=== PATIENT | female | born 1995 | race African-American/Black ===

== ENCOUNTER 2016-12-19 15:12 | Emergency (ER) | payer OTHER ==
[2016-12-19 15:20] VITALS: BP 140/81; PULSE 69; TEMP 98.2; BMI 44.6
--- NOTE | 2016-12-19 15:22 | PDOC ---
Rapid Medical Evaluation Chief Complaint: Foreign Body (FB) Time Seen by Provider: 12/19/16 15:19 Medical Evaluation: Allergies Allergy/AdvReac Type Severity Reaction Status Date / Time No Known Allergies Allergy Verified 12/19/16 15:17 Vital Signs Temp Pulse Resp BP Pulse Ox 98.2 F 69 19 140/81 97 12/19/16 15:17 12/19/16 15:17 12/19/16 15:17 12/19/16 15:17 12/19/16 15:17 12/19/16 15:21 I have performed a brief in-person evaluation of this patient. The patient presents with a chief complaint of: piece of glass in left foot Pertinent physical exam findings: no palpable mass I have ordered the following:foot xray The patient will proceed to the ED for further evaluation.
[2016-12-19] MEDS ORDERED: DIPHTH,PERTUSS(ACELL),TET 0.5 ML DISP.SYRIN IM ONE (15:56)
[2016-12-19] MEDS ORDERED: IBUPROFEN 600 MG TABLET (FP) PO ONE (15:56)
[2016-12-19] MEDS ORDERED: IBUPROFEN 400 MG TABLET (FP) PO ONE (15:58)
--- NOTE | 2016-12-19 16:04 | PDOC ---
History of Present Illness - General Chief Complaint: Foreign Body (FB) Stated Complaint: stepped on glass Time Seen by Provider: 12/19/16 15:19 History Source: Patient Exam Limitations: No Limitations - History of Present Illness Initial Comments: 12/19/16 16:26 21-year-old female presents to the ED for evaluation of foreign body into her left foot. Patient states was walking barefoot in her house when she felt something go into her foot. Patient states her boyfriend use a pair of tweezers and was able to move a sliver of glass. Patient states although the pain has subsided she is concerned that there might be glass in her foot. Patient unsure of her last tetanus and denies history of immunosuppression. Patient states unable to ambulate without difficulty. Timing/Duration: 1 hour Severity: mild Associated Symptoms: reports: denies symptoms Past History - Past Medical History Allergies/Adverse Reactions: Allergies Allergy/AdvReac Type Severity Reaction Status Date / Time No Known Allergies Allergy Verified 12/19/16 15:17 Home Medications: Ambulatory Orders Diphenhydramine [Benadryl -] 100 mg PO DAILY 07/10/15 Ibuprofen 400 mg PO QID PRN #30 tablet 07/11/15 Pseudoephedrine HCl [Sudafed] 30 mg NR TID PRN #20 tablet 07/11/15 Sodium Chloride [Saline Nasal [place]] 44 ml NS QID PRN #1 spray 07/11/15 Psychiatric Problems: Yes (ANXIETY,DEPRESSION) Suicide Attempt (Hx): Yes - Reproductive History Para: 0 - Immunization History Immunization Up to Date: Yes - Psycho/Social/Smoking Cessation Hx Anxiety: Yes Suicidal Ideation: No Smoking Status: No Smoking History: Never smoked Number of Cigarettes Smoked Daily: 2 Hx Alcohol Use: Yes ("occaison") Drug/Substance Use Hx: No Substance Use Type: Marijuana Hx Substance Use Treatment: No Patient Lives Alone: No Lives with/in: parents Review of Systems - Review of Systems Able to Perform ROS?: Yes Musculoskeletal: No: Symptoms Reported Integumentary: Yes: Other Neurological: No: Symptoms reported *Physical Exam - Vital Signs Last Vital Signs Temp Pulse Resp BP Pulse Ox 98.2 F 69 19 140/81 97 12/19/16 15:17 12/19/16 15:17 12/19/16 15:17 12/19/16 15:17 12/19/16 15:17 - Physical Exam General Appearance: Yes: Nourished, Appropriately Dressed. No: Apparent Distress Integumentary: positive: Other (Patient with small puncture wound to the mid foot of the left lower extremity. No palpable mass no point tenderness to area. Surrounding skin intact.) Neurologic: positive: Motor Strength 5/5 (ambulatory ) Medical Decision Making - Medical Decision Making 12/19/16 16:33 Patient states stepped on a piece of glass and instructed piece of glass is still in there so came to the ER for further evaluation. Patient states her boyfriend did take out a piece of glass using tweezers. Patient exam had no palpable mass or foreign body. Patient discharged home with supportive care instructions. *DC/Admit/Observation/Transfer Diagnosis at time of Disposition: Foreign body in foot, left Qualifiers: Encounter type: initial encounter Qualified Code(s): S90.852A - Superficial foreign body, left foot, initial encounter - Discharge Dispostion Disposition: HOME Condition at time of disposition: Good - Referrals Referrals: Bev Garcia [Primary Care Provider] - - Patient Instructions Printed Discharge Instructions: DI for Removal of Foreign Body From Skin Additional Instructions: I believe that you had removed the full piece of glass based on my exam but I do recommend that you do warm soaks with Epsom salts 3 times a day for 15 minutes. If symptoms continue over the next 5 days please return to the ED as this may indicate that there is still glass in her foot.
== END 2016-12-19 16:31 | disposition home or self-care (01) ==
LOC: JERFT 15:12
PROC: 3E0234Z Introduction of Serum, Toxoid and Vaccine into Muscle, Percutaneous Approach (ICD-10-PCS; principal; 2016-12-19)
DX: S91.342A Puncture wound with foreign body, left foot, initial encounter (principal); W25.XXXA Contact with sharp glass, initial encounter; Y93.01 Activity, walking, marching and hiking; Y92.038 Other place in apartment as the place of occurrence of the external cause
CPT/HCPCS: 84703; 90715; 99281-25

== ENCOUNTER 2017-01-03 16:11 | Emergency (ER) | payer OTHER ==
[2017-01-03 16:21] VITALS: BP 112/67; PULSE 77; TEMP 98.2; BMI 47.2
[2017-01-03] MEDS ORDERED: IBUPROFEN 600 MG TABLET (FP) PO ONE ×2 (17:15→17:18)
--- NOTE | 2017-01-03 17:18 | PDOC ---
History of Present Illness - General Chief Complaint: Pain, Acute Stated Complaint: RT KNEE INJURY Time Seen by Provider: 01/03/17 17:03 History Source: Patient Exam Limitations: No Limitations - History of Present Illness Initial Comments: 01/03/17 17:16 21 yr female with c/o right knee pain after twisting the knee last night while dancing. Pt states she may have fallen. no head trauma or loc. Occurred: reports: yesterday Severity: Yes: mild Lower Extremity Pain Location: right: knee Method of Injury: Yes: fell, twisted Modifying Factors: improves with: None Past History - Past Medical History Allergies/Adverse Reactions: Allergies Allergy/AdvReac Type Severity Reaction Status Date / Time No Known Allergies Allergy Verified 01/03/17 16:21 Home Medications: Ambulatory Orders NK [No Known Home Medication] 01/03/17 Psychiatric Problems: Yes (ANXIETY,DEPRESSION) Suicide Attempt (Hx): Yes - Reproductive History Para: 0 - Immunization History Immunization Up to Date: Yes - Psycho/Social/Smoking Cessation Hx Anxiety: Yes Suicidal Ideation: No Smoking Status: No Smoking History: Never smoked Number of Cigarettes Smoked Daily: 2 Information on smoking cessation initiated: No Hx Alcohol Use: No Drug/Substance Use Hx: No Substance Use Type: None Hx Substance Use Treatment: No Review of Systems - Review of Systems Able to Perform ROS?: Yes Is the patient limited Stateless proficient: No Constitutional: No: Symptoms Reported HEENTM: No: Symptoms Reported Respiratory: No: Symptoms reported Cardiac (ROS): No: Symptoms Reported ABD/GI: No: Symptoms Reported : No: Symptoms Reported Musculoskeletal: Yes: See HPI *Physical Exam - Vital Signs Last Vital Signs Temp Pulse Resp BP Pulse Ox 98.2 F 77 18 112/67 97 01/03/17 16:20 01/03/17 16:20 01/03/17 16:20 01/03/17 16:20 01/03/17 16:20 - Physical Exam General Appearance: Yes: Nourished, Appropriately Dressed HEENT: positive: EOMI, OG Respiratory/Chest: positive: Lungs Clear, Normal Breath Sounds Cardiovascular: positive: Regular Rhythm, Regular Rate Musculoskeletal: positive: Normal Inspection Extremity: positive: Normal Capillary Refill, Normal Inspection, Normal Range of Motion, Tender (medially right ankle ) Integumentary: positive: Normal Color, Dry, Warm Neurologic: positive: Fully Oriented, Alert, Normal Mood/Affect, Normal Response , Motor Strength 5/5 Procedures - Splinting Pre-Made Type: knee immobilizer Post-Proc Neuro Vasc Exam: normal ED Treatment Course - RADIOLOGY Radiology Studies Ordered: Category Date Time Status KNEE 3 POS-RIGHT [RAD] Stat Radiology 01/03/17 17:15 Ordered Medical Decision Making - Medical Decision Making 01/03/17 17:17 cc: right knee injury last night dancing pt denies states uses IUD no deformity or swelling will give motrin and r/o fracture 01/03/17 18:[address] knee immobilizer , pt stable with the immobilizer motrin for pain follow up with the orthopedist 01/03/17 18:42 xray report resulted discussed with the patient knee immobilizer placed and pt ambulated with the splint in place 01/03/17 18:43 *DC/Admit/Observation/Transfer Diagnosis at time of Disposition: Right knee sprain Qualifiers: Encounter type: initial encounter Involved ligament of knee: unspecified cruciate ligament Qualified Code(s): S83.501A - Sprain of unspecified cruciate ligament of right knee, initial encounter - Discharge Dispostion Disposition: HOME Condition at time of disposition: Good - Referrals Referrals: Bev Garcia [Primary Care Provider] - Gurpreet Forte MD [Staff Physician] - - Patient Instructions Additional Instructions: elevate the knee and apply ice every 2hrs for 20 minutes use the immobilizer while awake remove to sleep and bathe take motrin 600mg every 6hrs for pain follow with the orthopedist next week for follow up
== END 2017-01-03 18:00 | disposition home or self-care (01) ==
LOC: JERFT 16:11
PROC: 2W3LX1Z Immobilization of Right Lower Extremity using Splint (ICD-10-PCS; principal; 2017-01-03)
DX: S83.501A Sprain of unspecified cruciate ligament of right knee, initial encounter (principal); X58.XXXA Exposure to other specified factors, initial encounter; Y93.41 Activity, dancing; Y92.9 Unspecified place or not applicable
CPT/HCPCS: 29515; 73562-TC-RT; 99281-25

== ENCOUNTER 2019-11-19 01:51 | Emergency (ER) | payer OTHER ==
[2019-11-19 02:27] VITALS: BMI 46.0
[2019-11-19] MEDS ORDERED: ACETAMINOPHEN 500 MG TABLET (FP) PO ONE (03:25)
[2019-11-19] MEDS ORDERED: ACETAMINOPHEN 325 MG TABLET (FP) ONE (03:37)
--- NOTE | 2019-11-19 03:53 | PDOC ---
History of Present Illness - General Chief Complaint: Pain Stated Complaint: WEAKNESS,SORE THROAT Time Seen by Provider: 11/19/19 02:11 History Source: Patient Exam Limitations: No Limitations - History of Present Illness Initial Comments: 24 yo obese female with no pmh presents to the ER with one day of a sore thrat, body aches, and a fever. She states she wants to know if she has strep throat. She also requests to have a medication to make her throat feel better. She denies recent lethargy, fatigue, decreased PO intake, vomiting. Denies chest pain, SOB, difficulty breathing PCP: Kyle Lyman PSH: Denies Allergies: NKDA, NKA Social Hx: Drinks on weekends. Denies other toxic substances Past History - Past Medical History Allergies/Adverse Reactions: Allergies Allergy/AdvReac Type Severity Reaction Status Date / Time No Known Allergies Allergy Verified 11/19/19 02:00 Home Medications: Ambulatory Orders Ibuprofen 400 mg PO PRN 5 Days #10 tablet 11/19/19 COPD: No Psychiatric Problems: Yes (ANXIETY,DEPRESSION) - Reproductive History Para: 0 - Immunization History Td Vaccination: Yes TDAP Vaccination: Yes Immunization Up to Date: Yes - Psycho Social/Smoking Cessation Hx Smoking Status: No Smoking History: Never smoked Have you smoked in the past 12 months: No Number of Cigarettes Smoked Daily: 2 Information on smoking cessation initiated: No Hx Alcohol Use: No Drug/Substance Use Hx: No Substance Use Type: None Hx Substance Use Treatment: No Review of Systems - Review of Systems Able to Perform ROS?: Yes Comments:: CONSTITUTIONAL: Present: Fever Absent: no chills, no fatigue EYES: Absent: visual changes ENT: Present: Sore throat Absent: ear pain CARDIOVASCULAR: Absent: chest pain, no palpitations RESPIRATORY: Absent: cough, no SOB GI: Absent: abdominal pain, no nausea, no vomiting, no constipation, no diarrhea GENITOURINARY: Absent: dysuria, no frequency, no hematuria MUSKULOSKELETAL: Absent: back pain, no arthralgia, no myalgia SKIN: Absent: rash NEURO: Absent: headache *Physical Exam - Vital Signs Last Vital Signs Temp Pulse Resp BP Pulse Ox 102.6 F H 108 H 20 139/96 100 11/19/19 02:23 11/19/19 02:23 11/19/19 02:23 11/19/19 02:23 11/19/19 02:23 - Physical Exam GENERAL: Well-appearing, well-nourished. No apparent distress. HEENT: Oropharyngeal ertyhema. Normocephalic, atraumatic. PERRL, EOM intact. CARDIOVASCULAR: Tachycardic rate. Normal S1, S2. Regular rhythm. PULMONARY: No evidence of respiratory distress. Lungs clear to auscultation bilaterally. No wheezing, rales or rhonchi. ABDOMEN: Soft, non-distended, non-tender. EXTREMITIES: Normal ROM in all four extremities. No gross deformities. SKIN: Warm, dry. No rash NEUROLOGICAL: No focal neurological deficits. ED Treatment Course - Medications Given in the ED: ED Medications Discontinued Medications Generic Name Dose Route Start Last Admin Trade Name Freq PRN Reason Stop Dose Admin Acetaminophen 975 mg 11/19/19 03:25 11/19/19 03:41 Tylenol - PO 11/19/19 03:26 975 mg ONCE ONE Administration Medical Decision Making - Medical Decision Making 24 yo obese female with no pmh presents to the ER with one day of a sore thrat, body aches, and a fever. She states she wants to know if she has strep throat. She also requests to have a medication to make her throat feel better. She denies recent lethargy, fatigue, decreased PO intake, vomiting. Vital Signs Temp Pulse Resp BP Pulse Ox 102.6 F H 108 H 20 139/96 100 11/19/19 02:23 11/19/19 02:23 11/19/19 02:23 11/19/19 02:23 11/19/19 02:23 DDx IBNLT: Strep vs EBV vs URi vs other viral syndrome Strep: Negative Re-assessment: Patient feels well after tylenol and requests to be discharged. She states she will follow up with her PCP tomorrow Dispo: Home with PCP fu Discharge - Discharge Information Problems reviewed: Yes Clinical Impression/Diagnosis: Sore throat (viral), Viral syndrome Condition: Improved Disposition: HOME - Admission No - Additional Discharge Information Prescriptions: Ibuprofen 400 mg PO PRN 5 Days #10 tablet - Follow up/Referral Referrals: Kyle Lyman [Primary Care Provider] - - Patient Discharge Instructions Patient Printed Discharge Instructions: DI for Viral Syndrome Additional Instructions: You came into the ER with a sore throat. We believe you have a virus. Please schedule a follow up appointment with your primary doctor in the next 3 to 5 days. Go knot picker cloth the motrin we are sending to your pharmacy Come back to the ER immediately with any new or worsening concerns. Thank you for coming to the [facility]. We hope you feel better soon! Print Language: HUNGARIAN - Post Discharge Activity
[2019-11-19 04:13] VITALS: BP 130/88; PULSE 94; TEMP 99.8
--- NOTE | 2019-11-19 04:49 | PDOC ---
Attending Attestation - Resident Resident Name: Zhang Elias - ED Attending Attestation I have performed the following: I have examined & evaluated the patient, The case was reviewed & discussed with the resident, I agree w/resident's findings & plan, Exceptions are as noted - HPI HPI: 11/25/19 20:38 See resident HPI - Physicial Exam PE: 11/25/19 20:38 Agree with documented exam - Medical Decision Making 11/25/19 20:38 24F concerned about strep pharnygitis, c/o viral syndrome symptomatic tx significant improvement likely viral pharyngitis/syndrome dc
== END 2019-11-19 04:11 | disposition home or self-care (01) ==
LOC: JER 01:51
DX: J02.9 Acute pharyngitis, unspecified (principal); B34.9 Viral infection, unspecified
CPT/HCPCS: 87070; 87880; 99282-25

== ENCOUNTER 2025-07-17 06:30 | Emergency (ER) | payer OTHER ==
[2025-07-17 06:35] VITALS: BMI 40.0
[2025-07-17] MEDS ORDERED: ACETAMINOPHEN INJECTION 100 ML ONE (07:59)
[2025-07-17] MEDS ORDERED: LIDOCAINE 5% TOPICAL PATCH ONE (07:59)
[2025-07-17 08:03] LABS: MCHC 31.7 g/dl (32.2-35.5)
[2025-07-17 08:05] LABS: RDW 13.8 % (12.1-16.5)
[2025-07-17 08:10] LABS: MEAN CELL VOLUME 87.2 fl (79.4-94.8); MEAN PLT VOLUME 11.0 fl (9.4-12.3)
[2025-07-17] MEDS: ACETAMINOPHEN 1000 MG/100 ML BAG IVPB ONE (08:19)
[2025-07-17] MEDS: LIDOCAINE 5% TOPICAL PATCH TP ONE (08:19)
[2025-07-17 08:26] LABS: GLUCOSE,RANDOM 125.0 mg/dL (74-106); TOT PROT 6.7 g/dl (6.4-8.2)
[2025-07-17 08:27] LABS: CO2 25.0 mmol/L (21-32)
[2025-07-17 08:28] LABS: ALK PHOS 60.0 U/L (40-150)
[2025-07-17 08:31] LABS: CREATININE 0.77 mg/dL (0.55-1.3); SGOT/AST 22.0 U/L (5-34); SGPT/ALT 13.0 U/L (0-55)
[2025-07-17 10:35] LABS: URINE APPEARANCE CLEAR; URINE BILIRUBIN NEGATIVE (NEGATIVE); URINE COLOR YELLOW; URINE GLUCOSE (UA) NEGATIVE (NEGATIVE); URINE KETONE NEGATIVE (NEGATIVE); URINE LEUK ESTERASE NEGATIVE (NEGATIVE); URINE NITRITE NEGATIVE (NEGATIVE); URINE PROTEIN NEGATIVE (NEGATIVE); URINE UROBILINOGEN 1.0 mg/dL (0.2-1.0)
[2025-07-17 10:38] LABS: HCG,QUALITATIVE URINE Negative
[2025-07-17 13:13] VITALS: BP 122/80; PULSE 77; RESP 19; TEMP 97.9
[2025-07-17] MEDS ORDERED: LIDOCAINE PATCH REMOVAL MC SCH (22:00)
== END 2025-07-17 12:07 | disposition home or self-care (01) ==
LOC: JER 06:30
PROC: 3E033NZ Introduction of Analgesics, Hypnotics, Sedatives into Peripheral Vein, Percutaneous Approach (ICD-10-PCS; principal; 2025-07-17)
DX: R10.11 Right upper quadrant pain (principal); R10.12 Left upper quadrant pain; R10.13 Epigastric pain; R11.2 Nausea with vomiting, unspecified
CPT/HCPCS: 36415; 71045-TC-FY; 76705-TC; 80053; 81003; 83690; 84484; 84703; 85025; 87086; 93005; 93010; 99285-25